=== PATIENT | male | born 1935 | race Caucasian/White ===

== ENCOUNTER 2019-09-09 09:25 | Day surgery (SDC) | payer MEDICARE, BC ==
[2019-09-08 11:55] VITALS: BMI 26.5
[~2019-09-09 09:25] MED LIST: Activase 2 MG VIAL CATH SCH; EPINEPHrine 0.3 MG in Ophthalmic Irrigation Solution 500 ML IRR SCH; Fentanyl 100 MCG/2 ML VIAL ONE
[2019-09-09] MEDS ORDERED: Phenylephrine 2.5% Ophth Soln 5 ML BOT ONE (09:48)
[2019-09-09] MEDS ORDERED: Cyclopentolate 1% Opth Drop 2 ML BOT ONE (09:48)
[2019-09-09] MEDS ORDERED: Lidocaine 4% PF 5 ML AMP ONE (10:03)
[2019-09-09] MEDS ORDERED: Maxitrol 0.1% Opth Oint 3.5 GM TUBE ONE (10:03)
[2019-09-09] MEDS ORDERED: Bupivacaine PF 0.75% SDV 10 ML ONE (10:03)
[2019-09-09] MEDS ORDERED: CEFAZOLIN 1 GM VIAL ONE (10:03)
[2019-09-09] MEDS ORDERED: Triamcinolone 40 MG/ML VIAL ONE (10:03)
[2019-09-09] MEDS ORDERED: PROPOFOL 200 MG/20 ML VIAL ONE (10:03)
[2019-09-09] MEDS ORDERED: Lidocaine 1% PF 5 ML VIAL ONE (10:03)
--- NOTE | 2019-09-09 13:27 | OP ---
DATE OF PROCEDURE: 09/09/2019 PREOPERATIVE DIAGNOSIS: Subretinal hemorrhage, left eye. POSTOPERATIVE DIAGNOSIS: Subretinal hemorrhage, left eye. PROCEDURES PERFORMED: Pars plana vitrectomy and injection of subretinal tissue plasminogen activator, left eye. ANESTHESIA: Local with monitored anesthesia care. PROCEDURE IN DETAIL: The patient was identified in the preoperative holding area where appropriate informed consent for the planned surgical procedure on the left eye had been obtained. The patient was transported to the operative suite where appropriate cardiopulmonary monitoring was established. Local anesthesia was obtained using retrobulbar modified Van Lint lid block using 50:50 mixture of 4% lidocaine and 0.75% bupivacaine. The patient was prepped and draped in the usual sterile manner for ophthalmic surgery in the left eye. Lid speculum was placed on the left eye. A 25-gauge trocar was placed in the conjunctiva and sclera superotemporally, inferotemporally, and supranasally. Infusion line was placed inferotemporally. Light pipe and vitreous cutter were inserted into the eye. Core vitrectomy was performed. 50 mcg of tissue plasminogen activator diluted in balanced salt solution were injected into the subretinal space using a specialized injection cannula. Complete air-fluid exchange was performed and 10 minutes being allowed for fluid to drain posteriorly. 28% sulfur hexafluoride gas was infused into the eye. Supratemporal sclerotomy suture closed with 6-0 plain gut suture. Retrobulbar Kenalog and subconjunctival Ancef were placed. Antibiotic ointment was placed. Eye was patched and shielded. The patient was taken to postoperative recovery unit in good condition, having suffered no immediate perioperative complications. The patient was instructed to keep patch and shield on, remained flat on back for 1 hour and then positioned head up, and followup appointment with Dr. Meyer. Job ID: [id number]
== END 2019-09-09 13:40 | disposition home or self-care (01) ==
LOC: SDC 09:25
PROVIDERS: ATTEND Ophthalmology Retina Specialist
PROC: 3E0C3GC Introduction of Other Therapeutic Substance into Eye, Percutaneous Approach (ICD-10-PCS; principal; 2019-09-09)
DX: H35.62 Retinal hemorrhage, left eye (principal)
CPT/HCPCS: 67025; J2997; J0171; J0690; J2001; J2704; J3010; J3301; J3490